=== PATIENT | female | born 1965 | race Caucasian/White ===

== ENCOUNTER 2016-09-19 14:27 | Emergency (ER) | payer OTHER ==
[2016-09-19 14:39] VITALS: BP 130/79
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
--- OUTSIDE RECORDS SUMMARY | 2016-09-19 15:10 | XMS REPORT | Continuity of Care Document ---
:1965 Author Organization [facility] [place] [address] Care Team Providers Name Role Phone Jesús Sanchez V Primary Care Provider [phone] Source Comments This disclosure is being made pursuant to the [employer] program and maynot contain all information available regarding this patient.[facility] Active Allergies and Adverse Reactions Allergen Noted Date Severity Reactions Comments Ceprotin 07/12/2016 Medium Unknown Ciprofloxacin 07/12/2016 Medium Unknown Clonazepam 07/12/2016 Medium Unknown Cymbalta 07/12/2016 Low Unknown Desyrel 07/12/2016 Medium Unknown Dye 07/12/2016 Medium Unknown Gabapentin 07/12/2016 Medium Unknown Iodine 07/12/2016 Medium Unknown Macrolides And Ketolides 07/12/2016 Medium Unknown Nubain 07/12/2016 Medium Unknown Stelazine 07/12/2016 Medium Unknown Tylenol With Codeine #3 07/12/2016 Medium Unknown Current Medications Be aware that medications may not be up to date as of this document. Alwaysverify current medications with the patient. Prescription Sig. Disp. Refills Start Date End Date Status albuterol (PROVENTIL) Take 3 mLs by 0 04/12/2016 Active (2.5 MG/3ML) 0.083% nebulization nebulizer solution every 4 (four) hours as needed. allopurinol (ZYLOPRIM) Take 100 mg by 1 06/13/2016 Active 100 MG tablet mouth 2 (two) times daily as needed. glimepiride (AMARYL) 2 Take 2 mg by 5 06/13/2016 Active MG tablet mouth daily. FREESTYLE INSULINX TEST Check blood 2 05/12/2016 Active test strip sugars twice daily lamoTRIgine (LAMICTAL) Take by mouth. 3 04/13/2016 Active 200 MG tablet lisinopril Take 1 tablet by 2 06/16/2016 Active (PRINIVIL,ZESTRIL) 10 MG mouth daily. tablet LORazepam (ATIVAN) 1 MG Take 1-2 tablets 5 05/21/2016 Active tablet by mouth every 8 (eight) hours as needed. LATUDA 80 MG TABS tablet Take by mouth. 6 06/14/2016 Active metformin (GLUCOPHAGE) Take 1,000 mg by 1 06/13/2016 Active 1000 MG tablet mouth 2 (two) times daily. LYRICA 75 MG capsule Take 1 tablet by 0 06/11/2016 Active mouth 2 (two) times daily. traMADol (ULTRAM) 50 MG Take 1 tablet by 0 06/21/2016 Active tablet mouth 2 (two) times daily as needed. NAPROXEN PO Take by mouth. Active hydrochlorothiazide Take 1 tablet by 30 tablet 2 08/02/2016 Active (HYDRODIURIL) 25 MG mouth daily. tablet Active Problems Not on file Most Recent Encounters Date Type Specialty Providers Description 08/02/2016 Refill Family Medicine Sandie Vallejo RN 07/19/2016 Refill Family Medicine Sandie Vallejo RN 07/16/2016 Refill Family Medicine Yoel Chi ARNP 07/13/2016 Orders Only Provider, Not In System 07/12/2016 Abstract Family Medicine Angie West RN Social History Tobacco Use Types Packs/Day Years Used Date Never Smoker Alcohol Use Drinks/Week oz/Week Comments Yes social basis Plan of Care Date Type Specialty Providers Description 09/20/2016 Appointment Family Medicine Angelique Dunn, [employer] [address] [place] [address] [phone] (Fax) Health Maintenance Due Date Last Done Comments Tetanus/Pertussis (1 - Tdap) 1985 Pap Smear 09/18/1987 Influenza Immunization (#1) 2015 Colonoscopy 2016 Mammogram 2016 Well Adult Visit 2016 Results from Last 3 Months EKG 12 lead (07/07/2016)
[2016-09-19] MEDS ORDERED: HYDROcodone/ACETAMINOPHEN 1 EACH TABLET PO ONE (15:15)
--- NOTE | 2016-09-19 15:15 | ERNOTE ---
Lower Extremity HPI - Narrative Date of Service: 09/19/16 - General Lower Extremities Pain: knee: right Time Seen by Provider: 09/19/16 15:04 Source: patient, family, RN notes reviewed, old records Exam Limitations: no limitations - Immun/Allergies/Home Medications Immunizations: IMMUNIZATION HX Immunizations Up to Date No History of Influenza Vaccine No Hx Pneumococcal Vaccination No Allergies/Adverse Reactions: Allergies Allergy/AdvReac Type Severity Reaction Status Date / Time iodine Allergy Severe Anaphylaxis Verified 12/29/14 21:19 povidone-iodine Allergy Severe Anaphylaxis Verified 12/29/14 21:19 [From Betadine] soap [From Betadine] Allergy Severe Anaphylaxis Verified 12/29/14 21:19 asenapine maleate Allergy Intermediate SWELLING, Verified 12/29/14 21:19 [From Saphris] HYPERSALVATION Phenothiazines Allergy Intermediate FACE AND Verified 12/29/14 21:19 MOUTH NUMB, CANT TALK ciprofloxacin [From Cipro] Allergy Mild HIVES, Verified 12/29/14 21:19 VOMITING, SWELLING ciprofloxacin HCl Allergy Mild HIVES, Verified 12/29/14 21:19 [From Cipro] VOMITING, SWELLING gabapentin AdvReac Intermediate SEIZURES Verified 12/29/14 21:19 nalbuphine HCl [From Nubain] AdvReac Intermediate Vomiting Verified 12/29/14 21: 19 trifluoperazine HCl AdvReac Intermediate NUMBNESS, Verified 12/29/14 21:19 [From Stelazine] HYPERSALVATION amoxicillin [Amoxicillin] AdvReac Mild VOMITING, Verified 12/29/14 21:19 RASH Home Medications: HOME MEDICATIONS LORazepam [Ativan] 1 - 2 mg PO TID PRN 06/18/13 [Last Taken 08/25/14] metFORMIN HCL [Glucophage] 1,000 mg PO BIDWM 10/08/13 [Last Taken 08/25/14] Glimepiride [Amaryl] 2 mg PO DAILY 12/29/14 [Last Taken Unknown] Allopurinol [Zyloprim (Allopurinol)] 100 mg PO BID 09/19/16 [Last Taken Unknown] HYDROcodone/ACETAMINOPHEN [[place] 5-325] 1 - 2 tab PO Q6H PRN #10 tab 09/19/16 [ Last Taken Unknown] Hydrochlorothiazide 20 mg PO DAILY 09/19/16 [Last Taken Unknown] Lisinopril [Zestril] 10 mg PO DAILY 09/19/16 [Last Taken Unknown] Lurasidone HCl [Latuda] 40 mg PO DAILY 09/19/16 [Last Taken Unknown] Metoprolol Succinate 25 mg PO BID 09/19/16 [Last Taken Unknown] Pregabalin [Lyrica] 75 mg PO BID 09/19/16 [Last Taken Unknown] - History of Present Illness Narrative: Right knee pain - was seen by Zurdo Lagunas PA-C in orthopedics 2 days ago. Xrays of the knee were obtained and she was given a steroid injection. She had some improvement in pain, but it became much worse when she swung her leg over a picnic table bench earlier this afternoon. She reports feeling a pop and then could not bear weight. She reports being unable to completely extend the knee. Occurred: this afternoon Location of Incident: [place] Method of Injury: Reports: twisted Associated Symptoms: Reports: unable to bear weight, popping sensation Subsequent Symptoms: Denies: sensory loss, numbness, motor loss Prior Treament: Reports: recently seen, similar symptoms before Review of Systems - Review of Systems Constitutional: Present: no symptoms reported EYE: Present: no symptoms reported ENT: Present: no symptoms reported Respiratory: Present: no symptoms reported Cardiology: Present: no symptoms reported Gastrointestinal/Abdominal: Present: no symptoms reported Genitourinary: Present: no symptoms reported Musculoskeletal: Present: joint pain. Absent: joint swelling Skin: Absent: lesions, lumps, change in color Neurological: Absent: weakness, numbness, tingling Endocrine: Present: no symptoms reported Hematologic/Lymphatic: Present: no symptoms reported Psych: Present: emotional problems - Patient's Past Medical History Patient History - Medical: Anxiety, Bipolar, Diabetes Type 2, Obesity, Other Patient History - Cardiac/Respiratory: History Unknown Patient History - Cancer: History Unknown Patient History - Surgical Procedures: Appendectomy, Back Surgery, T & A, Other - Social History Living Situations: home Psych History: Psychiatric Hx, Current tx/ever been on anti-depressants or anti- anxiety meds Smoking Status: Never smoker Alcohol Use: occasionally - Immunizations Immunizations Up to Date: No Hx Pneumococcal Vaccination: No History of Influenza Vaccine: No Physical Exam - Physical Exam General Appearance: Present: alert, obese, other - Appears calm initially and then cries dramatically when describing her pain Respiratory: Present: no respiratory distress, no accessory muscle use Cardiovascular/Chest: Present: normal peripheral pulses Peripheral Pulses: N=norm/S=strong/W=weak/B=bound/A=absent: Dorsalis-pedis (R): Normal, Dorsalis-pedis (L): Normal Extremity Exam: Present: decreased range of motion - Right knee, extension, extremity edema - mild, bilateral lower legs and feet, other - Right knee diffusely tender. Absent: joint redness, joint swelling Neurological Exam: Present: alert, oriented, no motor/sensory deficits, other - Very dramatic. Absent: normal mood/affect Skin Exam: Present: normal color, warm/dry ED Progress - Vital Signs Patient's Vital Signs:: I have reviewed the patient's vital signs. Vital Signs: Vital Signs 09/19/16 14:33 Temperature 36.2 C L Pulse Rate 86 Respiratory 14 Rate Blood Pressure 130/79 O2 Sat by Pulse 96 Oximetry - X-Ray X-Ray #1 X-Ray: knee Interpretation: Interp. by me X-ray Comments: Right knee - degenerative changes without any acute osseous abnormality - Progress/Reassessment Chief Complaint: Lower Extremity Pain/ Injury Progress:: Improved Plan - Plan Plan: Xray done d/t patient's complaints of severe pain and "popping" at the time of injury. No change since the films 2 days ago. Explained xray results and need for follow-up repeatedly. Patient is intermittently hysterical about the situation, unclear if she understands her instructions. Departure Clinical Impression: Right knee injury Qualifiers: Encounter type: initial encounter Qualified Code(s): S89.91XA - Unspecified injury of right lower leg, initial encounter Right knee DJD Qualifiers: Osteoarthritis type: unspecified Qualified Code(s): M17.11 - Unilateral primary osteoarthritis, right knee - Departure Disposition: Home Follow Up Needed Condition: Stable Instructions: Knee Sprain, [id number] Additional Instructions: Wear WILLIAM wrap as needed for support Ice and elevate Contact orthopedics for follow up Referrals: Zurdo Lagunas, PAC [[facility]] - Prescriptions: HYDROcodone/ACETAMINOPHEN [[place] Path 5-325] 1 - 2 tab PO Q6H PRN #10 tab PRN Reason: Pain
[2016-09-19] MEDS ORDERED: HYDROcodone/ACETAMINOPHEN 1 EACH TABLET ONE (15:17)
== END 2016-09-19 15:50 | disposition home or self-care (01) ==
LOC: ER 14:27
DX: S89.91XA Unspecified injury of right lower leg, initial encounter (principal); M17.11 Unilateral primary osteoarthritis, right knee; F31.9 Bipolar disorder, unspecified; E11.9 Type 2 diabetes mellitus without complications; F41.9 Anxiety disorder, unspecified; X50.1XXA Overexertion from prolonged static or awkward postures, initial encounter; Y92.830 Public park as the place of occurrence of the external cause